=== PATIENT | male | born 1935 | race Caucasian/White ===

== ENCOUNTER 2020-12-03 12:47 | Emergency (ER) | payer OTHER ==
[~2020-12-03] VITALS: Ht 167.6 cm; Wt 97.5 kg
[2020-12-03 13:29] LABS: BASO # 0.1 10*3/uL (0.0-0.1); BASO % 0.5 % (0.0-1.0); EOS # 0.3 10*3/uL (0.0-0.4); HEMATOCRIT 35.3 % (42.0-52.0); LYMPH # 3.2 10*3/uL (1.3-4.4); LYMPH % 33.5 % (27.0-41.0); MEAN CELL VOLUME 86.3 fl (80.0-94.0); MEAN CORPUSCULAR HGB 25.7 pg (27.0-31.0); MEAN CORPUSCULAR HGB CONC 29.7 g/dl (33.0-37.0); MEAN PLATELET VOLUME 9.5 fl (9.6-12.3); MONO # 0.8 10*3/uL (0.1-1.0); MONO % 8.7 % (3.0-9.0); NEUT # 5.2 10*3/uL (2.3-7.9); PLATELET COUNT AUTOMATED 366 10*3/uL (130-400); RED BLOOD COUNT 4.09 10*6/uL (4.50-5.90); WHITE BLOOD COUNT 9.6 10*3/uL (4.8-10.8)
[2020-12-03 13:48] LABS: ALBUMIN 2.9 gm/dl (3.1-4.5); ALKALINE PHOSPHATASE 86 U/L (45-117); BUN 73 mg/dl (7-24); CHLORIDE 105 mmol/L (98-107); CREATININE 2.02 mg/dL (0.70-1.30); POTASSIUM 4.4 mmol/L (3.5-5.1); SGOT/AST 14 IU/L (3-35); SGPT/ALT 15 U/L (12-78); SODIUM 142 mmol/L (136-145); TOTAL PROTEIN 7.2 gm/dL (6.4-8.2)
[2020-12-03 13:51] LABS: ETHYL ALCOHOL < 3.0 mg/dl (<3)
== END 2020-12-03 15:22 | disposition home or self-care (01) ==
LOC: ED 12:47
PROVIDERS: Emergency Medicine
DX: F32.9 Major depressive disorder, single episode, unspecified (principal)

== ENCOUNTER 2020-12-13 23:03 | Inpatient (IN) | payer OTHER ==
[~2020-12-13] VITALS: Ht 167.6 cm; Wt 104.0 kg
[2020-12-13 23:26] LABS: BASO # 0.1 10*3/uL (0.0-0.1); BASO % 0.5 % (0.0-1.0); EOS # 0.3 10*3/uL (0.0-0.4); EOS % 1.9 % (1.0-4.0); HEMATOCRIT 38.7 % (42.0-52.0); LYMPH # 2.5 10*3/uL (1.3-4.4); LYMPH % 18.5 % (27.0-41.0); MEAN CELL VOLUME 89.4 fl (80.0-94.0); MEAN CORPUSCULAR HGB 25.6 pg (27.0-31.0); MEAN CORPUSCULAR HGB CONC 28.7 g/dl (33.0-37.0); MEAN PLATELET VOLUME 9.6 fl (9.6-12.3); MONO # 1.1 10*3/uL (0.1-1.0); MONO % 8.4 % (3.0-9.0); NEUT # 9.5 10*3/uL (2.3-7.9); NEUT % 70.4 % (47.0-73.0); PLATELET COUNT AUTOMATED 428 10*3/uL (130-400); RED BLOOD COUNT 4.33 10*6/uL (4.50-5.90); WHITE BLOOD COUNT 13.5 10*3/uL (4.8-10.8)
[2020-12-13 23:44] LABS: ALBUMIN 2.9 gm/dl (3.1-4.5); ALKALINE PHOSPHATASE 97 U/L (45-117); BUN 76 mg/dl (7-24); CHLORIDE 106 mmol/L (98-107); CREATININE 2.08 mg/dL (0.70-1.30); POTASSIUM 4.5 mmol/L (3.5-5.1); SGOT/AST 10 IU/L (3-35); SGPT/ALT 11 U/L (12-78); SODIUM 140 mmol/L (136-145); TOTAL PROTEIN 7.8 gm/dL (6.4-8.2)
[2020-12-13 23:49] LABS: TROPONIN I < 0.015 ng/ml (<0.045)
[2020-12-14] VITALS (8 sets, daily range): BP systolic 118–158; BP diastolic 50–68
[2020-12-14] MEDS ORDERED: PULMICORT RESP0.5 M1 INH (04:29)
[2020-12-14] MEDS ORDERED: BROVANA15 MCG/2 M INH (04:29)
[2020-12-14] MEDS ORDERED: BUMETANIDE1 MG PO (04:30)
[2020-12-14] MEDS ORDERED: COLACE100 MG PO (04:30)
[2020-12-14] MEDS ORDERED: GLIPIZIDE5 MG PO (04:31)
[2020-12-14] MEDS ORDERED: FLOVENT HFA12 GM INH (04:31)
[2020-12-14] MEDS ORDERED: NEURONTIN100 MG PO (04:31)
[2020-12-14] MEDS ORDERED: Ipratropium Brom3 ML INH (04:32)
[2020-12-14] MEDS ORDERED: IMDUR SA30 MG PO (04:33)
[2020-12-14] MEDS ORDERED: TOPROL XL50 M1 PO (04:33)
[2020-12-14] MEDS ORDERED: PROAIR HFA8.5 GM INH (04:34)
[2020-12-14] MEDS ORDERED: TAMSULOSIN HCL0.4 MG PO (04:34)
[2020-12-14] MEDS ORDERED: TORSEMIDE20 MG PO (04:35)
[2020-12-14] MEDS ORDERED: VITAMIN D3125 MCG PO (04:35)
[2020-12-14] MEDS ORDERED: ELIQUIS2.5 M1 PO (04:53)
[2020-12-14 05:38] LABS: ALBUMIN 2.5 gm/dl (3.1-4.5); CREATININE 2.13 mg/dL (0.70-1.30); FREE T4 0.83 ng/dl (0.76-1.46); POTASSIUM 4.5 mmol/L (3.5-5.1); TOTAL PROTEIN 6.9 gm/dL (6.4-8.2)
[2020-12-14 05:44] LABS: THYROID STIM HORMONE (HS) 0.825 uIU/ml (0.358-4.75)
[2020-12-14 05:58] LABS: BASO # 0.1 10*3/uL (0.0-0.1); BASO % 0.5 % (0.0-1.0); EOS % 0.1 % (1.0-4.0); HEMATOCRIT 33.9 % (42.0-52.0); LYMPH # 1.6 10*3/uL (1.3-4.4); MEAN CELL VOLUME 87.1 fl (80.0-94.0); MEAN CORPUSCULAR HGB 25.4 pg (27.0-31.0); MEAN CORPUSCULAR HGB CONC 29.2 g/dl (33.0-37.0); MEAN PLATELET VOLUME 10.2 fl (9.6-12.3); MONO # 1.4 10*3/uL (0.1-1.0); MONO % 9.9 % (3.0-9.0); NEUT # 11.3 10*3/uL (2.3-7.9); NEUT % 77.9 % (47.0-73.0); PLATELET COUNT AUTOMATED 391 10*3/uL (130-400); RED BLOOD COUNT 3.89 10*6/uL (4.50-5.90); RED CELL DISTRI WIDTH 18.9 % (0-14.5); WHITE BLOOD COUNT 14.4 10*3/uL (4.8-10.8)
[2020-12-15] VITALS: BP 130/68
[2020-12-15 06:10] LABS: BASO % 0.3 % (0.0-1.0); EOS # 0.3 10*3/uL (0.0-0.4); EOS % 2.5 % (1.0-4.0); HEMATOCRIT 33.8 % (42.0-52.0); LYMPH # 2.7 10*3/uL (1.3-4.4); LYMPH % 23.6 % (27.0-41.0); MEAN CELL VOLUME 88.5 fl (80.0-94.0); MEAN CORPUSCULAR HGB 25.1 pg (27.0-31.0); MEAN CORPUSCULAR HGB CONC 28.4 g/dl (33.0-37.0); MEAN PLATELET VOLUME 10.1 fl (9.6-12.3); MONO # 1.2 10*3/uL (0.1-1.0); MONO % 10.7 % (3.0-9.0); NEUT # 7.3 10*3/uL (2.3-7.9); NEUT % 62.6 % (47.0-73.0); PLATELET COUNT AUTOMATED 371 10*3/uL (130-400); RED BLOOD COUNT 3.82 10*6/uL (4.50-5.90); RED CELL DISTRI WIDTH 18.8 % (0-14.5); WHITE BLOOD COUNT 11.6 10*3/uL (4.8-10.8)
[2020-12-15 06:31] LABS: CREATININE 2.05 mg/dL (0.70-1.30); POTASSIUM 4.7 mmol/L (3.5-5.1)
[2020-12-15 08:00] VITALS: BP 128/76; BP 156/80
[2020-12-15] MEDS ORDERED: ZITHROMAX250 MG PO (12:28)
[2020-12-15] MEDS ORDERED: ASPIRIN ADULT L81 M2 PO (12:29)
[2020-12-15] MEDS ORDERED: ATORVASTATIN CA40 M1 PO (12:29)
== END 2020-12-15 13:33 | disposition home or self-care (01) | DRG 871 ==
LOC: ED 23:03 → EDHOLD 12-14 02:06 → 4E 12-14 03:43 → 5E 12-14 03:44
PROVIDERS: Emergency Medicine; Internal Medicine; Social Worker Clinical; ADMIT Internal Medicine; ATTEND Internal Medicine
DX: A41.9 Sepsis, unspecified organism (principal); J18.9 Pneumonia, unspecified organism; I50.33 Acute on chronic diastolic (congestive) heart failure; J44.0 Chronic obstructive pulmonary disease with (acute) lower respiratory infection; N17.9 Acute kidney failure, unspecified; E44.0 Moderate protein-calorie malnutrition; I13.0 Hypertensive heart and chronic kidney disease with heart failure and stage 1 through stage 4 chronic kidney disease, or unspecified chronic kidney disease; R65.20 Severe sepsis without septic shock; D47.3 Essential (hemorrhagic) thrombocythemia; E83.41 Hypermagnesemia; F32.9 Major depressive disorder, single episode, unspecified; E11.65 Type 2 diabetes mellitus with hyperglycemia; N18.32 Chronic kidney disease, stage 3b; D63.1 Anemia in chronic kidney disease; I25.10 Atherosclerotic heart disease of native coronary artery without angina pectoris; E11.22 Type 2 diabetes mellitus with diabetic chronic kidney disease; E78.5 Hyperlipidemia, unspecified; I87.2 Venous insufficiency (chronic) (peripheral); I25.2 Old myocardial infarction; Z82.49 Family history of ischemic heart disease and other diseases of the circulatory system; Z80.9 Family history of malignant neoplasm, unspecified; Z88.6 Allergy status to analgesic agent; Z90.49 Acquired absence of other specified parts of digestive tract; Z79.01 Long term (current) use of anticoagulants; Z79.899 Other long term (current) drug therapy; Z68.37 Body mass index [BMI] 37.0-37.9, adult